=== PATIENT | male | born 1985 | race American Indian/Alaskan Native ===

== ENCOUNTER 2016-10-03 13:43 | Emergency (ER) | payer OTHER ==
[2016-10-03 14:13] VITALS: BP 133/83
[2016-10-03] MEDS ORDERED: MOTRIN PO ONE (18:03)
[2016-10-03] MEDS ORDERED: FLEXERIL PO ONE (18:03)
[2016-10-03] MEDS ORDERED: NORCO 5/325 PO ONE (18:03)
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
== END 2016-10-03 19:45 | disposition home or self-care (01) ==
LOC: ED 13:43
DX: M79.1 Myalgia (principal); Z91.02 Food additives allergy status; V87.7XXA Person injured in collision between other specified motor vehicles (traffic), initial encounter; Y93.89 Activity, other specified; Y99.9 Unspecified external cause status; Y92.410 Unspecified street and highway as the place of occurrence of the external cause
CPT/HCPCS: 72072; 72125